=== PATIENT | male | born 1945 | race Hispanic/Latino ===

== ENCOUNTER 2018-11-21 10:38 | Day surgery (SDC) | payer OTHER ==
[~2018-11-21] VITALS: Ht 180.3 cm; Wt 83.5 kg
[2018-11-21] VITALS (10 sets, daily range): BP systolic 89–136; BP diastolic 55–84
[2018-11-21] MEDS ORDERED: PROPOFOL 10 MG/ML 20ML VIAL IV ONE (13:43)
[2018-11-21] MEDS ORDERED: HYDR-4154 PO (13:45)
[2018-11-21] MEDS ORDERED: CEFE1VIA7 IJ (13:45)
[2018-11-21] MEDS ORDERED: AMLO5TAB9 PO (13:45)
[2018-11-21] MEDS ORDERED: FLUC200P10 IV (13:45)
[2018-11-21] MEDS ORDERED: CLON0.1T PO (13:45)
[2018-11-21] MEDS ORDERED: PYRI180T PO (13:45)
[2018-11-21] MEDS ORDERED: PRED10TA3 PO (13:45)
[2018-11-21] MEDS ORDERED: FOLI1TAB61 PO (13:45)
[2018-11-21] MEDS ORDERED: PANT40TA25 PO (13:45)
[2018-11-21] MEDS ORDERED: SODIUM CHLORIDE 0.9% 1000ML 1,000 ML IV ONE (13:51)
--- NOTE | 2018-11-21 16:40 | NUR ---
LATE ENTRY WHEN TRANSFERED PT TO GI RECOVERY NG TUBE TO LEFT NARE WAS COILED IN THE MOUTH, ADVISED DOCTOR GREEN AND NEW ORDER TO REMOVE NG TUBE AND HAVE SOLARA REPLACE IF NEEDED. PT STABLE
== END 2018-11-21 16:15 ==
LOC: SUH 10:38
PROVIDERS: ATTEND Internal Medicine Gastroenterology
DX: K63.5 Polyp of colon (principal); K29.00 Acute gastritis without bleeding; K26.4 Chronic or unspecified duodenal ulcer with hemorrhage; K57.30 Diverticulosis of large intestine without perforation or abscess without bleeding; K64.1 Second degree hemorrhoids; K21.0 Gastro-esophageal reflux disease with esophagitis; D62 Acute posthemorrhagic anemia; N40.0 Benign prostatic hyperplasia without lower urinary tract symptoms; G70.00 Myasthenia gravis without (acute) exacerbation; I10 Essential (primary) hypertension; Z88.8 Allergy status to other drugs, medicaments and biological substances; Z79.899 Other long term (current) drug therapy; Z90.49 Acquired absence of other specified parts of digestive tract; Z85.528 Personal history of other malignant neoplasm of kidney; Z86.711 Personal history of pulmonary embolism; Z90.5 Acquired absence of kidney; Z98.890 Other specified postprocedural states; Z72.89 Other problems related to lifestyle; Z87.891 Personal history of nicotine dependence; Z82.49 Family history of ischemic heart disease and other diseases of the circulatory system; Z80.0 Family history of malignant neoplasm of digestive organs
CPT/HCPCS: 36415; 43239; 43255; 45385; 86677; 88305; 93005; A4606; J2704; J7030; 45384

== ENCOUNTER 2018-12-13 13:43 | Day surgery (SDC) | payer OTHER ==
[~2018-12-13 13:43] MED LIST: AMLO5TAB9 PO; CEFE1VIA7 IJ; CLON0.1T PO; FLUC200P10 IV; FOLI1TAB61 PO; HYDR-4154 PO; PANT40TA25 PO; PRED10TA3 PO; PYRI180T PO
--- NOTE | 2018-12-13 14:15 | NUR ---
PT ARRIVED TO DAY PT FLOOR BY EMS FROM [facility]. PT IS AAOX3, NO C/O OF PAIN IN GENERAL. BILIARY DRAIN TO RT LATERAL ABDOMEN IS DRAINING. PT TRANSFERRED TO BED, VITALS TAKEN, PT STABLE. PT ON ISOLATION, CONTACT PRECAUTION FOR MRSA (NARES). CALLED [facility] FOR MEDICATION LIST AND NPO STATUS. CALLED DR. 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 CALVILLO AWARE, IODINE OK TO USE DURING PROCEDURE, SEES NO COMPLICATIONS, NO NEW ORDERS RECEIVED, OK TO PROCEED. PT INFORMED, PT VERBALIZED UNDERSTANDING, AGREED TO PROCEED WITH PROCEDURE. PT TRANSFERRED BY BED TO [facility] AT 1600 WITH Filiberto BLACKWOOD RN.
[2018-12-13 15:37] LABS: BASOPHILS % (AUTO) 1.3 % (0.0-5.0); EOSINOPHILS % (AUTO) 0.9 % (0.0-8.0); HEMATOCRIT 25.2 % (42-54); LYMPHOCYTES % (AUTO) 25.4 % (21.0-51.0); MEAN CORPUSCULAR HEMOGLOBIN 30.5 pg (27.0-33.0); MEAN CORPUSCULAR HGB CONC 33.5 g/dL (32.0-36.0); MEAN CORPUSCULAR VOLUME 90.9 fL (79-99); MONOCYTES % (AUTO) 2.6 % (3.0-13.0); NEUTROPHILS % (AUTO) 69.8 % (40.0-77.0); NUCLEATED RED BLOOD CELLS 0.1 % (0.0-0.19); PLATELET COUNT (AUTO) 263 K/uL (130-400); RED BLOOD CELL COUNT(AUTO) 2.77 MIL/uL (4.50-6.20); RED CELL DISTRIBUTION WIDTH 14.5 % (11.0-15.5); WHITE BLOOD COUNT (AUTO) 5.4 K/uL (4.8-10.8)
[2018-12-13 15:45] LABS: CREATININE 1.8 mg/dL (0.5-1.5); POTASSIUM 3.9 mmol/L (3.5-5.1)
[2018-12-13 15:48] LABS: INR 1.02 (0.85-1.15); PARTIAL THROMBOPLASTIN TIME 23.1 SEC (26.3-35.5); PROTHROMBIN TIME 10.7 SEC (9.6-11.6)
[2018-12-13] MEDS ORDERED: LIDOCAINE HCL 1% MDV 50ML VIAL ONE (16:11)
[2018-12-13] MEDS ORDERED: IODIXANOL 320 MG/ML 100 ML VIAL ONE (16:11)
[2018-12-13] MEDS ORDERED: FENTANYL CITRATE PF 50 MCG/1 ML 2ML VIAL ONE (16:45)
[2018-12-13] MEDS ORDERED: MIDAZOLAM HCL 1 MG/ML 2ML VIAL ONE (16:51)
[2018-12-13 18:15] VITALS: BP 125/65
[2018-12-13 18:30] VITALS: BP 140/55
[2018-12-13 18:45] VITALS: BP 140/55
--- NOTE | 2018-12-13 18:57 | NUR ---
1615: REPORT GIVEN TO RYANNE WATKINS AT [facility]. DISCHARGE INSTRUCTIONS AND ORDERS PLACED IN A ENVELOPE, GIVEN TO INSTRUCTED TO GIVE TO RECEIVING NURSE AT FACILITY ON ARRIVAL. PT AAOX3, C/O OF MILD DISCOMFORT TO OPSITE S/O PROCEDURE. DRESSING IS DRY AND INTACT. PT RESTING COMFORTABLY, VITALS STABLE. PT ABLE TO TOLERATE FULL LIQUID DIET. PT GIVEN A NEW PACKAGE DRAINAGE BAG, INSTRUCTED ONLY TO CONNECT TO DRAINAGE PORT IF PT IS HAVING FEVER, N/V OR SEVERE PAIN. PT VERBALIZED UNDERSTANDING. INSTRUCTED [facility] NURSE TO FLUSH DRAINAGE PORT WITH NS ONCE DAILY, AND GIVE PT SUPPLY OF FLUSHES PT NEEDS TO DO AT HOME PER DR. CALVILLO. INFORMED [facility] NURSE TO F/U WITH PT BIOPSIES IN [address] KHAN AT [facility] FACILITY. PT TRANSPORTED BY EMS ON STRETCHER, NO DISTRESS, STABLE, BACK TO [facility] ACCOMPANIED BY .
[2018-12-13 19:00] VITALS: BP 130/54
== END 2018-12-13 19:05 ==
LOC: DAH 13:43 → CLH 13:43
PROVIDERS: ATTEND Internal Medicine Gastroenterology
DX: K83.1 Obstruction of bile duct (principal); I10 Essential (primary) hypertension; N40.0 Benign prostatic hyperplasia without lower urinary tract symptoms; G70.00 Myasthenia gravis without (acute) exacerbation; Z85.528 Personal history of other malignant neoplasm of kidney; Z90.5 Acquired absence of kidney; Z88.8 Allergy status to other drugs, medicaments and biological substances
CPT/HCPCS: 36415; 47536; 47543; 80048; 85025; 85610; 85730; 88108; 88305; 88307; A4606; C1729; C1769 ×2; C1894; J1644; J2250; J3010; J3490; Q9967; 99156; 99157